=== PATIENT | male | born 1960 | race African-American/Black ===

== ENCOUNTER 2022-02-25 13:00 | Emergency (ER) | payer OTHER ==
[~2022-02-25] VITALS: Ht 185.4 cm; Wt 68.0 kg
[2022-02-25 13:04] VITALS: BP 126/77
--- NOTE | 2022-02-25 13:55 | NUR ---
61/M BIBA FROM STREETS C/O CHRONIC LOW BACK PAIN. DENIES ANY RECENT INJURY OR FALL BUT STATES INJURY IN THE PAST. DENIES TAKING ANY MEDS FOR THE PAIN. AAO4. VITALS STABLE. PMH: HTN, DM, GLAUCOMA NKDA
[2022-02-25] MEDS ORDERED: ACETAMINOPHEN 325 MG TAB PO ONE (14:10)
[2022-02-25] MEDS ORDERED: MORPHINE SULFATE 4 MG/ML SYR IVP ONE (15:55)
[2022-02-25] MEDS ORDERED: ONDANSETRON 4 MG/2 ML VIAL IVP ONE (15:55)
--- NOTE | 2022-02-25 16:05 | NUR ---
PATIENT TAKEN TO CT VIA W/C
--- NOTE | 2022-02-25 16:20 | NUR ---
Patient taken to bed 7 via wheelchair.
--- NOTE | 2022-02-25 16:54 | NUR ---
Patient requesting sisterJett be called. Called Oralia no answer, left message.
--- NOTE | 2022-02-25 16:56 | NUR ---
Patient requesting Sadie, to be called, no answer left message.
[2022-02-25] MEDS ORDERED: LIDO4CRE18 TP (17:25)
--- NOTE | 2022-02-25 17:40 | NUR ---
Called Anirudh, patients brother, unable to provide transportation.
[2022-02-25 17:54] VITALS: BP 125/77
--- NOTE | 2022-02-25 17:54 | NUR ---
Patient discharged with v/s stable. Written and verbal after care instructions given. Patient alert, oriented and verbalized understanding of instructions. Ambulatory with steady gait. All questions addressed prior to discharge. ID band removed. Patient advised to follow up with PMD. Opportunity to ask questions provided and answered.
--- NOTE | 2022-02-25 18:14 | NUR ---
The patient's care was reviewed and supervised by Skye Mack RN.
== END 2022-02-25 17:54 | disposition home or self-care (01) ==
LOC: MED 13:00
DX: M51.36 Other intervertebral disc degeneration, lumbar region (principal); M51.34 Other intervertebral disc degeneration, thoracic region; E11.9 Type 2 diabetes mellitus without complications; I10 Essential (primary) hypertension; Z79.899 Other long term (current) drug therapy; W18.39XA Other fall on same level, initial encounter; Y92.89 Other specified places as the place of occurrence of the external cause; Y93.89 Activity, other specified; Y99.8 Other external cause status
CPT/HCPCS: 72100; 72128; 72131; 96374; 96375; 99284; J2270; J2405; Q0092

== ENCOUNTER 2022-10-19 20:56 | Emergency (ER) | payer OTHER ==
[~2022-10-19] VITALS: Ht 188 cm; Wt 77.1 kg
[~2022-10-19 20:56] MED LIST: LIDO4CRE18 TP
[2022-10-19 21:06] VITALS: BP 144/108; PULSE 74; RESP 18; TEMP 98; O2SAT 95
--- NOTE | 2022-10-19 21:13 | NUR ---
PT AMBULATORY WITH ASSISTANCE TO BILLY
[2022-10-20] MEDS ORDERED: PENICILLIN G BENZATHINE L-A 1.2 MU/2 ML SYR IM ONE (05:10)
[2022-10-20 05:39] VITALS: BP 144/108; PULSE 74; RESP 18; TEMP 98; O2SAT 95
--- NOTE | 2022-10-20 05:40 | NUR ---
Patient discharged with v/s stable. Written and verbal after care instructions given and explained. Patient verbalized understanding. Ambulatory with steady gait. All questions addressed prior to discharge. Advised to follow up with PMD.
== END 2022-10-20 05:40 | disposition home or self-care (01) ==
LOC: MED 20:56
DX: A53.9 Syphilis, unspecified (principal); M79.10 Myalgia, unspecified site
CPT/HCPCS: 96372; 99283; J0561